=== PATIENT | female | born 1990 | race Caucasian/White ===

== ENCOUNTER 2018-06-13 09:37 | Emergency (ER) | payer OTHER ==
[~2018-06-13] VITALS: Ht 170.2 cm; Wt 92.1 kg
[2018-06-13] MEDS ORDERED: PREDNISONE 5 MG5 M1 PO (09:48)
[2018-06-13 10:38] LABS: ABSOLUTE LYMPHOCYTES 2.1 thou/uL (0.8-5.3); ABSOLUTE MONOCYTES 0.6 thou/uL (0.0-1.2); ABSOLUTE NEUTROPHILS 3.7 thou/uL (1.6-8.1); BASOPHILS 0.4 %; EOSINOPHILS 0.5 %; HEMATOCRIT 41.6 % (37.0-47.0); HEMOGLOBIN 14.2 gm/dL (12.0-15.0); LYMPHOCYTES 32.7 %; MCH 30.9 pg (26.0-34.0); MCHC 34.1 g/dL (28.0-37.0); MCV 90.9 fL (80.0-100.0); MONOCYTES 9.9 %; MPV 7.1 fl. (7.2-11.1); NUCLEATED RBCS 0 /100WBC; PLATELET COUNT* 303 thou/uL (150-400); POLYS 56.5 %; RBC 4.58 mil/uL (4.20-5.00); RDW-CV 12.4 % (10.5-14.5); WBC 6.5 thou/uL (4.0-11.0)
[2018-06-13 10:42] LABS: ANION GAP 8 mmol/L (7-16); BUN 14 mg/dL (7-18); CALCIUM 8.9 mg/dL (8.5-10.1); CHLORIDE 103 mmol/L (98-107); CO2 27 mmol/L (21-32); GLUCOSE 96 mg/dL (70-99); SODIUM 138 mmol/L (136-145)
[2018-06-13 10:44] LABS: URINE CLARITY CLEAR; URINE COLOR YELLOW; URINE GLUCOSE-RANDOM NEGATIVE (Negative); URINE PROTEIN NEGATIVE (Negative); URINE SPECIFIC GRAVITY 1.015 (1.005-1.030)
[2018-06-13 10:45] LABS: URINE BILIRUBIN NEGATIVE (Negative); URINE BLOOD 1+ (Negative); URINE KETONES NEGATIVE (Negative); URINE LEUKOCYTES-REFLEX NEGATIVE (Negative); URINE NITRITE-REFLEX NEGATIVE (Negative); URINE UROBILINOGEN 0.2 E.U./dl (0.2-1.0)
[2018-06-13 10:50] LABS: PROTIME 10.7 Seconds (9.20-11.50)
[2018-06-13 10:53] LABS: ALBUMIN 4.6 g/dL (3.4-5.0); ALKALINE PHOSPHATASE 63 U/L (46-116); NT-PRO BRAIN NAT PEPTIDE 25 pg/mL (<300); SGOT 14 U/L (15-37); SGPT 17 U/L (30-65); TOTAL BILIRUBIN 0.7 mg/dL (<0.1-1.0); TOTAL PROTEIN 8.6 g/dL (6.4-8.2); TROPONIN-I LEVEL <0.06 ng/mL (<0.06)
[2018-06-13 10:56] LABS: SQUAMOUS 0-3 Few /LPF (0-3)
[2018-06-13 10:57] LABS: CASTS None Seen /LPF (None Seen); MUCUS None Seen strn/LPF (None Seen); URINE RBC 0-2 Rare /HPF (0-2); URINE WBC-REFLEX None Seen /HPF (0-5)
[2018-06-13 10:58] LABS: CRYSTALS None Seen /LPF (None Seen)
[2018-06-13 11:09] LABS: BACTERIA-REFLEX None Seen /HPF (None Seen)
[2018-06-13 12:18] VITALS: BP 145/93
--- NOTE | 2018-06-13 17:05 | EKG ---
[place] [address] ELECTROCARDIOGRAM REPORT Name: MARVINEVELYN Muñoz Room: [facility]#: [id number] Admission: 06/13/18 Attend Phys: Discharge: 06/13/18 Date of : 89 Report #: [id number] THIS REPORT FOR: //name// [facility] ED Test Date: 2018-06-13 Test Time: 10:43:42 Pat Name: EVELYN WONG Department: Room: Gender: F Employee Health Nurse: Lu SAHA : 1990 Requested By: [place] Order Number: [id number] MD: Jhonny Douglas Measurements Intervals [place] Rate: 92 P: 71 UT: 204 QRS: 115 QRSD: 99 T: 47 QT: 363 QTc: 450 Interpretive Statements Sinus rhythm Borderline prolonged UT interval Right axis deviation No previous ECG available for comparison Electronically Signed On 06-13-2018 17:05:35 CDT by Jhonny Douglas [email or web address] <ELECTRONICALLY SIGNED> By: Jhonny Douglas MD, [facility] 06/13/18 1705 1043 1043 Jhonny Douglas MD, FACC /EPI
== END 2018-06-13 12:19 | disposition home or self-care (01) ==
LOC: M.ERS 09:37
PROVIDERS: Family Medicine
DX: R42 Dizziness and giddiness (principal)